=== PATIENT | female | born 1965 | race Caucasian/White ===

== ENCOUNTER 2019-02-20 13:38 | Outpatient (CLI) | payer OTHER ==
--- NOTE | 2019-02-21 22:12 | XRAY Report ---
Reason: JOINT PAIN Procedure Date: 02/20/2019 Accession Number: [id number] / [id number] Procedure: XRN - Hip w/Pelvis 2-3V RT CPT Code: FULL RESULT: EXAM: RIGHT HIP RADIOGRAPHY EXAM DATE: 02/20/2019 02:06 PM. CLINICAL HISTORY: Right hip pain COMPARISON: None. TECHNIQUE: Frontal view of the pelvis and frog-leg lateral view of the right hip (2 images total) FINDINGS: Bones: No acute fracture. No suspicious osseous lesion. Joints: No dislocation. No significant joint space narrowing. Soft Tissues: Unremarkable. IMPRESSION: -- No acute osseous abnormality. -- If pain persists or worsens, a nonemergent outpatient MRI hip may be helpful for further evaluation. RADIA
== END 2019-02-20 13:39 | disposition home or self-care (01) ==
LOC: DI.N 13:38
PROVIDERS: ATTEND Nurse Practitioner Gerontology
DX: M25.551 Pain in right hip (principal)

== ENCOUNTER 2019-06-11 08:54 | Day surgery (SDC) | payer OTHER ==
[2019-06-11] MEDS ORDERED: LACTATED RINGERS 1,000 ML IV ONE (09:00)
[2019-06-11 11:22] VITALS: BP 106/65
== END 2019-06-11 08:55 | disposition home or self-care (01) ==
LOC: SDS 08:54
PROVIDERS: ATTEND Surgery
PROC: 0DJD8ZZ Inspection of Lower Intestinal Tract, Via Natural or Artificial Opening Endoscopic (ICD-10-PCS; principal; 2019-06-11 10:15)
DX: Z12.11 Encounter for screening for malignant neoplasm of colon (principal); Z53.09 Procedure and treatment not carried out because of other contraindication; I10 Essential (primary) hypertension; E11.9 Type 2 diabetes mellitus without complications; Z79.899 Other long term (current) drug therapy; Z79.84 Long term (current) use of oral hypoglycemic drugs
CPT/HCPCS: 45378; J7120

== ENCOUNTER 2020-03-23 08:00 | Outpatient (CLI) | payer OTHER ==
[2020-03-23 12:46] LABS: BASOPHILS # (AUTO) 0.1 10^3/uL (0.0-0.1); BASOPHILS % (AUTO) 0.6 %; EOSINOPHILS # (AUTO) 0.5 10^3/uL (0.0-0.7); EOSINOPHILS % (AUTO) 4.6 %; HGB - HEMOGLOBIN 14.3 g/dL (12.0-16.0); LYMPHOCYTES # (AUTO) 3.4 10^3/uL (1.5-3.5); LYMPHOCYTES % (AUTO) 31.6 %; MEAN CORPUSCULAR HGB CONC 32.1 g/dL (32.0-36.0); MEAN CORPUSCULAR VOLUME 87.3 fL (81.0-99.0); MEAN PLATELET VOLUME 9.5 fL (7.9-10.8); MONOCYTES # (AUTO) 0.7 10^3/uL (0.0-1.0); MONOCYTES % (AUTO) 6.3 %; NEUTROPHILS # (AUTO) 6.1 10^3/uL (1.5-6.6); NEUTROPHILS % (AUTO) 56.3 %; PLT - PLATELET COUNT 240 10^3/uL (130-450); WHITE BLOOD COUNT 10.8 x10^3/uL (4.8-10.8)
[2020-03-23 13:27] LABS: ALBUMIN 3.8 g/dL (3.2-5.5); ALBUMIN/GLOBULIN RATIO 1.2 (1.0-2.2); ALKALINE PHOSPHATASE 92 IU/L (42-121); ALT ALANINE AMINOTRANSFERASE 67 IU/L (10-60); AST ASPARTATE AMINOTRANSFERASE 28 IU/L (10-42); BILIRUBIN,TOTAL 0.8 mg/dL (0.2-1.0); BUN - BLOOD UREA NITROGEN 19 mg/dL (6-20); CALCIUM 9.3 mg/dL (8.5-10.3); CARBON DIOXIDE - CO2 25 mmol/L (21-32); CHLORIDE 102 mmol/L (101-111); CHOLESTEROL 166 mg/dL; CREATININE 0.7 mg/dL (0.4-1.0); GLUCOSE 247 mg/dL (70-100); HDL CHOLESTEROL 56 mg/dL; LDL CHOLESTEROL,CALCULATED 75 mg/dL; LDL/HDL RATIO 1.3 (<4.4); SODIUM 134 mmol/L (135-145); TOTAL PROTEIN 6.9 g/dL (6.7-8.2); VLDL CHOLESTEROL 35 mg/dL
== END 2020-03-23 23:59 | disposition home or self-care (01) ==
LOC: LAB.WCP 08:00
PROVIDERS: ATTEND Nurse Practitioner Family
DX: E78.00 Pure hypercholesterolemia, unspecified (principal); I10 Essential (primary) hypertension; E11.9 Type 2 diabetes mellitus without complications
CPT/HCPCS: 36415; 80053; 80061; 83036; 83721; 84443; 85025

== ENCOUNTER 2021-01-14 15:34 | Outpatient (CLI) | payer OTHER ==
[2021-01-14 15:56] LABS: HGB - HEMOGLOBIN 13.4 g/dL (12.0-16.0); MEAN CORPUSCULAR HEMOGLOBIN 26.8 pg (27.0-31.0); MEAN CORPUSCULAR HGB CONC 32.7 g/dL (32.0-36.0); MEAN PLATELET VOLUME 8.4 fL (7.9-10.8); RED CELL DISTRIBUTION WIDTH 13.1 % (12.0-15.0); WHITE BLOOD COUNT 14.1 x10^3/uL (4.8-10.8)
== END 2021-01-14 15:35 | disposition home or self-care (01) ==
LOC: LAB 15:34
PROVIDERS: ATTEND Surgery
DX: R19.07 Generalized intra-abdominal and pelvic swelling, mass and lump (principal)
CPT/HCPCS: 36415; 82378; 85027; 86304

== ENCOUNTER 2021-09-21 08:00 | Outpatient (CLI) | payer MEDICAID ==
--- NOTE | 2021-09-21 15:18 | CT Report ---
PROCEDURE: CHEST W INDICATIONS: MALIGNANT NEOPLASM OF ENDOMETRIUM CONTRAST: IV CONTRAST: Optiray 320 ml: 100 PO CONTRAST: Optiray 320 ml50 TECHNIQUE: After the administration of intravenous contrast, 1 mm axial images were acquired from the pulmonary apices through the posterior costophrenic angles. Axial 5 mm soft tissue kernel reconstructions were performed as well as 8 mm axial MIP and coronal and sagittal 5 mm reformations. For radiation dose reduction, the following was used: automated exposure control, adjustment of mA and/or kV according to patient size. COMPARISON: July 06, 2021 FINDINGS: CT CHEST: Thyroid: Heterogeneous attenuation. Vasculature: The thoracic aorta and arch vasculature have a normal contrasted appearance and are norm al size and contour. No evidence for dissection. A right gem catheter is seen with tip in SVC. Heart: No cardiomegaly or significant pericardial effusion. Coronary artery calcification. Mediastinum: No pathologic lymph node enlargement by size criteria. Lung/pleura: No pleural effusion, consolidation, or pneumothorax. Tracheobronchial tree: Patent. Bones: No acute abnormality. Redemonstrated sclerotic foci in T6 and T12, unchanged. Chest wall: The chest wall and axilla are within normal limits. IMPRESSION: 1.No significant interval change. Reviewed by: Sathya Pozo MD on 09/21/2021 3:17 PM PST Approved by: Sathya Pozo MD on 09/21/2021 3:17 PM PST Station ID: [id number]
[2021-09-21] MEDS ORDERED: IOVERSOL 320 100 ML VIAL IVP ONE (15:30)
[2021-09-21] MEDS ORDERED: IOVERSOL 320 50 ML VIAL PO ONE (15:30)
--- NOTE | 2021-09-21 15:32 | CT Report ---
PROCEDURE: Abdomen/Pelvis W INDICATIONS: MALIGNANT NEOPLASM OF ENDOMETRIUM CONTRAST: IV CONTRAST: Optiray 320 ml: 100 PO CONTRAST: Optiray 320 ml50 TECHNIQUE: After the administration of oral and intravenous contrast, 5 mm thick sections acquired from the diap hragms to the symphysis. 5 mm thick coronal and sagittal reformats were acquired. For radiation dos e reduction, the following was used: automated exposure control, adjustment of mA and/or kV accordin g to patient size. COMPARISON: July 06, 2021 FINDINGS: Gallbladder: The gallbladder is distended with a smooth thin wall. Biliary tree: No intra-or extrahepatic biliary ductal dilatation. Liver: The liver demonstrates normal enhancement, size, and contour. Spleen: Normal enhancement, size and morphology is seen. Pancreas: No contour deforming mass or inflammatory change. Adrenals: Normal size without masses. Kidneys/ureters: Normal size and morphology. No solid masses or hydronephrosis. 1.2 cm hypoattenuatin g lesion in the left upper pole, most consistent with a cyst. Vasculature: No evidence of aneurysm or other significant vascular pathology. Lymphatic system: Shotty mesentery lymphadenopathy, most prominent in the right lower quadrant. GI/mesentery: No evidence of intestinal obstruction. Sigmoid diverticulosis. Moderate stool burden th roughout the colon. The appendix is not well-visualized. Peritoneum/Retroperitoneum: No free intraperitoneal gas. Moderate ascites. No definitive peritoneal i mplant. Urinary bladder: The urinary bladder is distended with a smooth thin wall. Pelvic organs: Redemonstrated 2 cm soft tissue nodular density in the left adnexa (3-72), unchanged. Bones/soft tissues: No acute abnormality. Redemonstrated sclerotic foci throughout the lumbar spine, less dense/sclerotic compared to the prior study. A 1.2 cm caudal focus in the left iliac bone, most consistent with a bone. IMPRESSION: 1.Moderate volume ascites, grossly unchanged. 2.No definitive peritoneal implant appreciated. 3.Redemonstrated sclerotic foci throughout the spine, which appear less dense/sclerotic compared to t he prior study and may reflect response to therapy. Reviewed by: Sathya Pozo MD on 09/21/2021 3:31 PM PST Approved by: Sathya Pozo MD on 09/21/2021 3:31 PM PST Station ID: [id number]
== END 2021-09-21 23:59 | disposition home or self-care (01) ==
LOC: DI 08:00
PROVIDERS: ATTEND Internal Medicine
DX: C54.1 Malignant neoplasm of endometrium (principal); C78.6 Secondary malignant neoplasm of retroperitoneum and peritoneum; R18.8 Other ascites; R93.7 Abnormal findings on diagnostic imaging of other parts of musculoskeletal system
CPT/HCPCS: 71260; 74177; Q9967

== ENCOUNTER 2021-10-19 12:48 | Outpatient (CLI) | payer MEDICAID ==
--- NOTE | 2021-10-19 16:43 | CONSULTATION NOTE ---
Palliative Care Consultation - Referral Referring Provider: Dr. Indra Guajardo Time of Visit: [id number] Referral setting: [facility] Referral Reason: Peripheral neuropathy/Balance/Endometriod carcinoma of uterus - Information Sources Records reviewed: Previous records reviewed History/Review of Systems obtained from: Patient, Family (sister, Yuliya) Exam limitations: No limitations - History of Present Illness Brief History of Present Illness: This is a amalia 56-year-old female who presents today at [facility] for initial palliative care consultation for symptom management related to peripheral neuropathy that intensified asked to her Taxol treatments, debility, and goals of care with her sister, Yuliya present in the setting of 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 The patient reports that she was noting some nausea and vomiting when she first relocated to [facility] to live by her sister after the of their parents in [place]. She reports that in November 2020 she presented with extreme constipation with a work-up that underlined possible cancer diagnosis. It was initially believed to be GI in origin and she went for a colonoscopy and also had tumor markers performed with demonstration of an elevated CA-125 and therefore, colonoscopy was canceled and she had a consult with gynecology oncology. She lost approximately 60 pounds during this time from her initial diagnosis. She was in seen and evaluated by Dr. Silvia Brown. She subsequently underwent a biopsy that confirmed moderately differentiated carcinoma consistent with gynecologic origin of favoring endometrioid histologic type. She began cycle carboplatinum/Taxol on 04/20/2021 and completed her cycle 08/31/2021. She has been referred back to gynecology oncology for possible evaluation for debulking. Patient and sister have not heard from gynecology oncology office despite referral being placed and will follow-up regarding this. Her most significant burden at this time is related to peripheral neuropathy specifically to her hands and feet. She feels numbness in both her hands and feet. Before chemotherapy she was walking with a cane and therefore with her altered gait due to neuropathy has transition to a Rollator. She will also get shooting pain in her feet at times and she has significant sensitivity to cold. Oncologist has referred to PT/OT at [facility] the patient's request to work with balance and strengthening and fall prevention. Patient has been trialed on gabapentin 900 mg 3 times daily and over a period of several months did not find this beneficial but instead found that she had some mild pruritus related to this to the back of her legs and felt that her sole scraper was worse when handling things. Her neuropathy in sole scraper is worst in her right hand and she is right-hand dominant. She subsequently discontinued the gabapentin approximately 2 weeks ago. Has not noted any change in her symptoms since discontinuation. Sister was also reporting when the patient was up to 900 mg 3 times daily she was having some increased itching and could not seem to get comfortable and settling herself. Medical/Surgical History - Past Medical History Cardiovascular: reports: Hypertension, High cholesterol Respiratory: reports: Asthma, Pneumonia Endocrine/Autoimmune: reports: Type 2 diabetes GI: reports: Other (Stage IVB endometroid carcinoma of the uterus 2020) : reports: None HEENT: reports: Chronic hearing loss (right ear) Psych: reports: Depression MRSA Hx?: No - Past Surgical History General: reports: EGD HEENT: reports: Tonsil/Adenoidectomy - Substance History Use: Uses substance without health or social issues: NONE (HIstory of second hand smoke exposure) Social History - Living Situation Living arrangement: At home Living Situation: With family (sister, Yuliya) Support System: Patient grew up in [place]. She worked 40-hour shifts and then would return home to take care of her aging parents until the passing approximately 5 years ago. She relocated to [facility] January approximately 5 years ago to live with her sister. 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 She has never and has no kids. She has wonderful support from her sister, Yuliya and friends. She has a corgi at home that she has had for approximately 1 year who is very protective and will nip and bite and therefore, they do not have visitors into the home. Family History - Family History Family History: Mother: , Father: , Alzheimer's Disease Medications/Allergies - Medications Home Medications: Ambulatory Orders Medication Instructions Recorded Confirmed Albuterol Sulfate [Proair Hfa] 8.5 gm IH Q4H 09/02/14 04/07/21 Metformin HCl 850 mg PO BID 09/02/14 04/07/21 Multivitamin [Multivitamins] 1 each PO DAILY 09/02/14 04/07/21 Simvastatin 20 mg PO DAILY 09/02/14 04/07/21 Losartan Potassium 100 mg PO DAILY 06/10/19 04/07/21 SITagliptin [Januvia] 100 mg PO DAILY 06/10/19 04/07/21 Lidocaine/Prilocain 2.5% Cream 5 applic TOP UD #1 gm 04/11/21 [Emla 2.5% Cream] OLANZapine [Zyprexa] 5 mg PO UD #12 tablet 04/11/21 Ondansetron Odt [Zofran Odt] 4 mg TL Q6H PRN #30 tab 04/11/21 Prochlorperazine Maleate 10 mg PO Q6HR PRN #30 tab 04/11/21 [Compazine] LORazepam [Ativan] 1 tab PO PRN PRN 04/20/21 04/20/21 Ondansetron Odt [Zofran Odt] 4 mg TL Q6H PRN #90 tablet 04/27/21 Loperamide [Imodium] 2 mg PO 06/01/21 Sertraline [Zoloft] 25 mg PO DAILY 08/31/21 Pregabalin [Lyrica] 25 mg PO QPM 10/21/21 10/21/21 - Allergies Allergies/Adverse Reactions: Allergies Allergy/AdvReac Type Severity Reaction Status Date / Time No Known Drug Allergies Allergy Verified 06/11/19 09:35 Review of Systems - Constitutional Constitutional: reports: Weight loss (Since November 2020, appx 60lb, weighed 210lb before unintentional weight loss). denies: Fever - Eyes Eyes: denies: Corrective lenses - Ears, Nose & Throat Ears, Nose & Throat: reports: Hearing loss (right ear since childhood). denies: Hearing aids, Mouth lesions - Cardiovascular Cardiovascular: denies: Chest pain, Edema - Respiratory Respiratory: reports: Other (History of asthma). denies: Cough - Gastrointestinal Gastrointestinal: reports: Good appetite. denies: Abdominal pain, Constipation, Diarrhea - Genitourinary Genitourinary: denies: Incontinence - Musculoskeletal Musculoskeletal: reports: Muscle weakness, Assistive devices (cane or walker) - Integumentary Integumentary: reports: Dryness - Neurological Neurological: reports: General weakness, Numbness (to b/l hands and b/l feet). denies: Headache - Psychiatric Psychiatric: reports: Depression, Anxiety - Endocrine Endocrine: reports: Diabetes type 2 - Hematologic/Lymphatic Hematologic/Lymph: reports: Anemia (due to chemotherapy) - All Other Systems All Other Systems: reports: Reviewed and negative (sister, Yuliya supplemented ROS) Physical Exam - Vital Signs Temperature: 36.9 C Pulse Rate: 105 O2 Saturation: 99 (on RA) Blood Pressure: 112/71 - Physical Exam General Appearance: positive: No acute distress, Alert, Other (overweight) Eyes Bilateral: positive: Normal inspection ENT: positive: No signs of dehydration Neck: positive: Trachea midline Cardiovascular: positive: Regular rate & rhythm Respiratory: positive: No respiratory distress, Breath sounds nml. negative: Wheezes Abdomen: positive: Non-tender, Soft, Nml bowel sounds, Obese Skin: positive: No symptoms Extremities: positive: No pedal edema Neurologic/Psychiatric: positive: Oriented x3, Mood/affect nml, Other (Sensory ataxic gait with broad base walking with rollator). negative: Sensation nml Palliative Care - POLST Patient has POLST: No Pain: Comment (Pain related to neuropathy to b/l hands and feet rating 2/10) Tiredness/Fatigue: None Drowsiness/Sedation: None Nausea: None Anorexia: None Dyspnea: None Depression: None Anxiety: Mild (1-3) Feelings of wellbeing/Perceived Quality of Life: Good Sleep: Sleeps well Constipation: No Performance Status: Patient is ambulatory with her cane or Rollator. Sister has acquired adaptive utensils to utilize during mealtimes due to neuropathy. No history of frequent falls. Wide based ataxic gait. - Palliative Care Discussion: Patient has completed her chemotherapy and due to cumulative effects has had worsening peripheral neuropathy to her bilateral hands and feet with numbness and cold sensitivity leading to gait impairment and difficulty with fine motor tasks such as writing and holding utensils. She did not find gabapentin up to 900 mg 3 times daily effective. Discussed at length with the patient and sister given her symptom burden is most significant revolving around neuropathy would recommend a trial of pre-Killian starting at a low dose and slowly moving forward based on the patient's response. Lengthy discussion had regarding biobehavioral ability of pre-Killian and some similar structure were related to gabapentin. Patient is agreeable to do a trial of pregabalin 25 mg nightly. Also would benefit from physical therapy outpatient for working on strengthening with balance and mobilization. Followed up with [facility] physical therapy department and referral is in place and plan to contact the patient and sister to schedule on preference days of Tuesdays or Wednesdays. 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 Would benefit from trial of pregabalin 25 mg nightly moving forward and adjust based on the patient's response. Also will benefit from outpatient physical therapy and referral has already been placed and pending scheduling that was confirmed with physical therapy department at [facility]. Palliative care will continue to build rapport, provide care coordination and symptom management and anticipatory guidance. Recommendations/Counseling Done: 1. Peripheral neuropathy, in the setting of underlying diabetes mellitus and likely exacerbated by treatment with Taxol. Did not note improvement with gabapentin. Gabapentin has been discontinued by the patient herself and has not been on for approximately 2 weeks. Discussion had regarding improtance of foot care given neuropathy and underlying diabetes mellitus and to look at feet daily and to never walk barefoot with understanding verbalized. Would benefit from trial of pregabalin 25 mg nightly and adjust this dose moving forward. 2. Ataxic gait due to underlying peripheral neuropathy. Would benefit from PT/OT for balance and strengthening. Pending scheduling with [facility] outpatient physical therapy and was confirmed with department. Fall precautions. Encouraged to utilize her walker with ambulation. 3. Anxiety. Presently overall controlled with utilization of sertraline 25 mg daily and as needed lorazepam. Would consider transitioning to duloxetine if patient does not find pre-Killian effective for her neuropathy symptoms for dual therapy for her neuropathy and underlying anxiety. Continue to monitor. Has a strong support system from her sister. 4. Stage IV endometrial old carcinoma with peritoneal carcinomatosis. Status post carboplatinum/Taxol treatment. Pending referral back to gynecology oncology for possible surgical debulking and notified referral department at [facility] oncology it would be that patient and sister have not heard from water quality specialist o ncologist and to follow-up regarding this referral. Followed by oncology. 5. Advanced care planning. We will continue to follow rapport and tease out goals of care moving forward. Reviewed services related to palliative care. Total time spent 60 minutes with greater than 50% of the spent in counseling and coordination of care with the patient and sister; discussion regarding referrals with referral department at [facility] and physical therapy department; examination of patient; review of symptom management and medication pregabalin with purpose, dose, and side effects; and anticipatory guidance. Disclaimer: The chart note was formulated using voice recognition technology and unfortunately sound alike errors may occur.
== END 2021-10-19 12:49 | disposition home or self-care (01) ==
LOC: PC 12:48
PROVIDERS: ATTEND Nurse Practitioner Family
DX: Z51.5 Encounter for palliative care (principal); E11.42 Type 2 diabetes mellitus with diabetic polyneuropathy; Z79.84 Long term (current) use of oral hypoglycemic drugs; R27.0 Ataxia, unspecified; F41.9 Anxiety disorder, unspecified; C54.1 Malignant neoplasm of endometrium; C78.6 Secondary malignant neoplasm of retroperitoneum and peritoneum
CPT/HCPCS: 99205

== ENCOUNTER 2022-05-19 11:28 | Emergency (ER) | payer MEDICAID ==
[2022-05-19 12:11] LABS: BASOPHILS % (AUTO) 0.3 %; EOSINOPHILS # (AUTO) 0.1 10^3/uL (0.0-0.7); EOSINOPHILS % (AUTO) 0.8 %; HCT - HEMATOCRIT 37.5 % (37.0-47.0); HGB - HEMOGLOBIN 11.6 g/dL (12.0-16.0); LYMPHOCYTES # (AUTO) 1.1 10^3/uL (1.5-3.5); LYMPHOCYTES % (AUTO) 12.3 %; MEAN CORPUSCULAR HGB CONC 30.9 g/dL (32.0-36.0); MEAN CORPUSCULAR VOLUME 87.4 fL (81.0-99.0); MEAN PLATELET VOLUME 8.2 fL (7.9-10.8); MONOCYTES # (AUTO) 0.7 10^3/uL (0.0-1.0); MONOCYTES % (AUTO) 7.9 %; NEUTROPHILS % (AUTO) 78.3 %; PLT - PLATELET COUNT 265 10^3/uL (130-450); RED BLOOD COUNT 4.29 10^6/uL (4.20-5.40); RED CELL DISTRIBUTION WIDTH 16.8 % (12.0-15.0)
[2022-05-19] MEDS ORDERED: LORazepam 1 MG TABLET PO STA (12:23)
[2022-05-19 12:24] LABS: ALBUMIN 3.1 g/dL (3.2-5.5); ALBUMIN/GLOBULIN RATIO 0.9 (1.0-2.2); ALKALINE PHOSPHATASE 82 IU/L (42-121); ALT ALANINE AMINOTRANSFERASE 13 IU/L (10-60); AST ASPARTATE AMINOTRANSFERASE 21 IU/L (10-42); BILIRUBIN,TOTAL 0.6 mg/dL (0.2-1.0); BUN - BLOOD UREA NITROGEN 12 mg/dL (6-20); CALCIUM 9.3 mg/dL (8.5-10.3); CARBON DIOXIDE - CO2 24 mmol/L (21-32); CHLORIDE 102 mmol/L (101-111); CREATININE 0.5 mg/dL (0.4-1.0); GFR - MDRD 127 (>89); GLUCOSE 167 mg/dL (70-100); IONIZED CALCIUM IF INDICATED NO; MAGNESIUM 1.4 mg/dL (1.7-2.8); PHOSPHORUS 3.1 mg/dL (2.5-4.6); POTASSIUM 3.3 mmol/L (3.5-5.0); SODIUM 136 mmol/L (135-145); TOTAL PROTEIN 6.6 g/dL (6.7-8.2)
--- NOTE | 2022-05-19 12:31 | ED Physician Documentation ---
History of Present Illness - Stated complaint Stated Complaint: BODY SHAKING - Chief complaint Chief Complaint: General - History obtained from History obtained from: Patient, Family - History of Present Illness Timing: Today Pain level max: 0 Pain level now: 0 - Additonal information Additional information: Patient is a 57-year-old female brought into the emergency department for increasing anxiety today. She states that she has a history of anxiety She is on anxiety medication but does not know what it is. She does not know any of her medications. Does not have a medication list. She states she has had increased anxiety since being diagnosed with ovarian cancer. She does not talk to her doctor about increasing her anxiety medications. No chest pain. No shortness of breath. She states that she slept poorly last night because of the anxiety. No fevers. No chills. No vomiting. No abdominal pain. Review of Systems Ten Systems: 10 systems reviewed and negative Constitutional: denies: Fever, Chills GI: denies: Vomiting Skin: denies: Rash Musculoskeletal: denies: Neck pain, Back pain Neurologic: denies: Headache PD PAST MEDICAL HISTORY - Past Medical History Cardiovascular: Hypertension, High cholesterol Respiratory: Asthma, Pneumonia Neuro: Peripheral neuropathy Endocrine/Autoimmune: Type 2 diabetes, Other GI: Other APPLIQUER: Other (endometrial ca, ) : None HEENT: Chronic hearing loss (right ear) Psych: Depression Musculoskeletal: Osteoarthritis - Past Surgical History General: EGD HEENT: Tonsil/Adenoidectomy - Present Medications Home Medications: Ambulatory Orders Medication Instructions Recorded Confirmed Albuterol Sulfate [Proair Hfa 1 - 2 puffs IH Q4H PRN 09/02/14 05/19/22 Inhaler] Multivitamin [Multivitamins] 1 each PO DAILY 09/02/14 05/19/22 Simvastatin 20 mg PO QPM 09/02/14 05/19/22 Losartan Potassium 100 mg PO DAILY 06/10/19 05/19/22 Lidocaine/Prilocain 2.5% Cream 5 applic TOP UD #1 gm 04/11/21 05/19/22 [Emla 2.5% Cream] OLANZapine [Zyprexa] 5 mg PO UD #12 tablet 04/11/21 05/19/22 Ondansetron Odt [Zofran Odt] 4 mg TL Q6H PRN #90 tablet 04/27/21 05/19/22 Sertraline [Zoloft] 25 mg PO DAILY 08/31/21 05/19/22 Pregabalin [Lyrica] 25 mg PO QPM 10/21/21 05/19/22 Prochlorperazine [Compazine] 5 - 10 mg PO Q6H PRN 04/28/22 05/19/22 Ibuprofen [Advil] 400 mg PO DAILY PRN 04/29/22 05/19/22 LORazepam [Ativan] 1 mg PO ONCE PRN 04/29/22 05/19/22 SITagliptin [Januvia] 100 mg PO DAILY 04/29/22 05/19/22 - Allergies Allergies/Adverse Reactions: Allergies Allergy/AdvReac Type Severity Reaction Status Date / Time No Known Drug Allergies Allergy Verified 05/19/22 11:39 - Social History Does the pt smoke?: No Smoking Status: Never smoker - POLST Patient has POLST: No POLST Status: Full Code (Sister states that the patient has almost a teenage mentality. We may have to discuss what a full code really means for her to answer this question. We will have to do this tomorrow) PD ED PE NORMAL - Vitals Vital signs reviewed: Yes - General General: Alert and oriented X 3, No acute distress, Well developed/nourished - HEENT HEENT: Moist mucous membranes - Cardiac Cardiac: RRR, No murmur, Strong equal pulses - Respiratory Respiratory: No respiratory distress, Clear bilaterally - Abdomen Abdomen: Soft, Non tender, Non distended - Derm Derm: Warm and dry - Extremities Extremities: No calf tenderness / cord - Neuro Neuro: Alert and oriented X 3 - Psych Psych: Normal mood, Normal affect Results - Vitals Vitals: Vital Signs - 24 hr 05/19/22 05/19/22 11:36 14:00 Temperature 36.7 C Heart Rate 118 H 81 Respiratory 16 16 Rate Blood Pressure 135/85 H 130/75 O2 Saturation 97 97 Oxygen O2 Source Room air - Labs Labs: Laboratory Tests 05/19/22 05/19/22 12:05 12:05 WBC 9.0 RBC 4.29 Hgb 11.6 L Hct 37.5 MCV 87.4 MCH 27.0 MCHC 30.9 L RDW 16.8 H Plt Count 265 MPV 8.2 Neut # (Auto) 7.0 H Lymph # (Auto) 1.1 L [place] # (Auto) 0.7 Eos # (Auto) 0.1 Baso # (Auto) 0.0 Absolute Nucleated RBC 0.00 Nucleated RBC % 0.0 Sodium 136 Potassium 3.3 L Chloride 102 Carbon Dioxide 24 Anion Gap 10.0 BUN 12 Creatinine 0.5 Estimated GFR (MDRD) 127 Glucose 167 H Calcium 9.3 Ionized Calcium NO Phosphorus 3.1 Magnesium 1.4 L Total Bilirubin 0.6 AST 21 ALT 13 Alkaline Phosphatase 82 Total Protein 6.6 L Albumin 3.1 L Globulin 3.5 Albumin/Globulin Ratio 0.9 L PD MEDICAL DECISION MAKING - ED course Complexity details: reviewed results, re-evaluated patient, considered differential, d/w patient, d/w family ED course: Patient feels much better after Ativan. Symptoms resolved. No significant lab abnormalities, mild hypomagnesemia, mild hypokalemia. We will have her follow- up with her doctor for further care. Patient is well-appearing, nontoxic. Afebrile. Patient and family counseled regarding signs and symptoms for which I believe and urgent re-evaluation would be necessary. Patient with good u nderstanding of and agreement to plan and is comfortable going home at this time This document was made in part using voice recognition software. While efforts are made to proofread this document, sound alike and grammatical errors may occur. Departure - Departure Disposition: 01 Home, Self Care Clinical Impression: Anxiety Condition: Good Instructions: ED Stress React Follow-Up: your,doctor on Sunday [Other] Comments: You were given a dose of Ativan today. Please follow-up with your doctor for further care regarding your anxiety. Please return if you worsen. Discharge Date/Time: 05/19/22 14:02
[2022-05-19] MEDS ORDERED: LORazepam 2 MG/ML VIAL IM STA (13:01)
[2022-05-19 14:02] VITALS: BP 130/75
== END 2022-05-19 14:02 | disposition home or self-care (01) ==
LOC: ED 11:28
DX: F41.9 Anxiety disorder, unspecified (principal); C56.9 Malignant neoplasm of unspecified ovary; E87.6 Hypokalemia; E83.42 Hypomagnesemia; I10 Essential (primary) hypertension; E11.42 Type 2 diabetes mellitus with diabetic polyneuropathy; Z79.84 Long term (current) use of oral hypoglycemic drugs
CPT/HCPCS: 36415; 80053; 83735; 84100; 85025; 96372; 96374; 99282; 99283; J2060

== ENCOUNTER 2022-05-21 20:25 | Emergency (ER) | payer MEDICAID ==
[2022-05-21 20:51] VITALS: BP 108/72
== END 2022-05-21 20:51 | disposition left against medical advice (07) ==
LOC: ED 20:25
DX: Z53.21 Procedure and treatment not carried out due to patient leaving prior to being seen by health care provider (principal)

== ENCOUNTER 2022-10-09 14:53 | Observation (INO) | payer MEDICAID ==
--- NOTE | 2022-10-09 17:05 | ED Physician Documentation ---
History of Present Illness - Stated complaint Stated Complaint: FACIAL DROOP - Chief complaint Chief Complaint: Neuro - History obtained from History obtained from: Patient, Family - History of Present Illness Timing: Yesterday Pain level max: 0 Pain level now: 0 - Additonal information Additional information: 57-year-old female brought in by family. 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 Is undergoing chemotherapy with taxol. They noticed slurred speech and facial droop yesterday. Not improved today so brought to the emergency department. No focal neurological deficits. No weakness or numbness. Patient does not have any history of strokes in the past. 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: Other (endometrial ca, ) : None HEENT: Chronic hearing loss (right ear) Psych: Depression Musculoskeletal: Osteoarthritis - Past Surgical History General: EGD HEENT: Tonsil/Adenoidectomy - Present Medications Home Medications: Ambulatory Orders Medication Instructions Recorded Confirmed Albuterol Sulfate [Proair Hfa 1 - 2 puffs IH Q4H PRN 09/02/14 09/27/22 Inhaler] Multivitamin [Multivitamins] 1 each PO DAILY 09/02/14 09/27/22 Simvastatin 20 mg PO QPM 09/02/14 09/27/22 Lidocaine/Prilocain 2.5% Cream 5 applic TOP UD #1 gm 04/11/21 09/27/22 [Emla 2.5% Cream] Ondansetron Odt [Zofran Odt] 4 mg TL Q6H PRN #90 tablet 04/27/21 09/27/22 Sertraline [Zoloft] 75 mg PO DAILY 08/31/21 09/27/22 Pregabalin [Lyrica] 50 mg PO QPM 10/21/21 09/27/22 Prochlorperazine [Compazine] 5 - 10 mg PO Q6H PRN 04/28/22 09/27/22 LORazepam [Ativan] 1 mg PO ONCE PRN 04/29/22 09/27/22 SITagliptin [Januvia] 100 mg PO DAILY 04/29/22 09/27/22 ALPRAZolam [Xanax] 1 tab PO Q4HR PRN MDD 4 tabs 05/24/22 09/27/22 Metoclopramide [Reglan] 1 tab PO TID 05/24/22 09/27/22 oxyCODONE [Roxicodone] 5 mg PO Q4HR PRN 05/24/22 09/27/22 polyethylene glycoL 3350 [Miralax] 17 gm PO DAILY PRN 05/24/22 09/27/22 - Allergies Allergies/Adverse Reactions: Allergies Allergy/AdvReac Type Severity Reaction Status Date / Time No Known Drug Allergies Allergy Verified 10/09/22 14:55 - Social History Does the pt smoke?: No Smoking Status: Never smoker - POLST Patient has POLST: No POLST Status: Full Code (Sister states that the patient has almost a teenage mentality. We may have to discuss what a full code really means for her to answer this question. We will have to do this tomorrow) PD ED PE NORMAL - Vitals Vital signs reviewed: Yes - General General: Alert and oriented X 3, No acute distress - HEENT HEENT: Atraumatic, PERRL, Moist mucous membranes - Neck Neck: Supple, no meningeal sign - Cardiac Cardiac: RRR - Respiratory Respiratory: No respiratory distress, Clear bilaterally - Abdomen Abdomen: Soft, Non tender, Non distended - Back Back: No CVA TTP, No spinal TTP - Derm Derm: Warm and dry, No rash - Extremities Extremities: No edema - Neuro Neuro: Alert and oriented X 3, Other (slurred speech, mild word finding difficulty) Eye Opening: Spontaneous Motor: Obeys Commands Verbal: Oriented GCS Score: 15 Results - Vitals Vitals: Vital Signs - 24 hr 10/09/22 10/09/22 10/09/22 14:56 18:05 19:48 Temperature 36.5 C Heart Rate 100 108 H 102 H Respiratory 16 19 13 Rate Blood Pressure 102/70 92/68 129/82 H O2 Saturation 97 97 98 10/09/22 21:00 Temperature Heart Rate 107 H Respiratory 16 Rate Blood Pressure 113/76 O2 Saturation 100 Oxygen O2 Source Room air - EKG (time done) 1802 EKG releavant findings:: EKG personally interpreted by author of this note. Relevant findings are: Rate: Rate (enter#) (110) Rhythm: Sinus tachycardia [place]cano: Normal Intervals: Normal [place] QRS: Normal Ischemia: Normal ST segments - Labs Labs: Laboratory Tests 10/09/22 10/09/22 10/09/22 17:52 17:52 19:45 WBC 6.9 RBC 3.45 L Hgb 10.3 L Hct 33.1 L MCV 95.9 MCH 29.9 MCHC 31.1 L RDW 14.7 Plt Count 165 MPV 9.9 Neut # (Auto) 4.8 Lymph # (Auto) 1.5 [place] # (Auto) 0.5 Eos # (Auto) 0.1 Baso # (Auto) 0.0 Absolute Nucleated RBC 0.00 Nucleated RBC % 0.0 Sodium 137 Potassium 4.6 Chloride 105 Carbon Dioxide 26 Anion Gap 6.0 BUN 36 H Creatinine 0.6 Estimated GFR (MDRD) 103 Glucose 165 H Calcium 9.0 Total Bilirubin 0.3 AST 13 ALT 18 Alkaline Phosphatase 84 Total Protein 6.4 L Albumin 3.4 Globulin 3.0 Albumin/Globulin Ratio 1.1 Lipase 41 Urine Color YELLOW Urine Clarity CLEAR Urine pH 6.0 Ur Specific [place] 1.020 Urine Protein NEGATIVE Urine Glucose (UA) NEGATIVE Urine Ketones NEGATIVE Urine Occult Blood NEGATIVE Urine Nitrite NEGATIVE Urine Bilirubin NEGATIVE Urine Urobilinogen 0.2 (NORMAL) Ur Leukocyte Esterase NEGATIVE Ur Microscopic Review NOT INDICATED Urine Culture Comments NOT INDICATED - Rads (name of study) CTA head Relevant Findings:: Final report received, See rad report CTA neck Relevant Findings:: Final report received, See rad report Brain MRI Relevant Findings:: Final report received, See rad report PD Medical Decision Making - ED course Complexity details: reviewed results, re-evaluated patient, considered differential, d/w patient, d/w family, d/w consultant nurse ED course: Patient is a 57-year-old female who presents to the emergency department with right-sided facial droop and dysarthria as well as word finding difficulties since yesterday. CBC does not show any significant abnormalities other than a mild anemia. Chemistry does not show any significant abnormalities either other than a elevated BUN at 36. Creatinine is normal. Urinalysis does not show any acute abnormalities. CT angiogram of the neck does not show any significant stenosis or acute abnormalities. CT head does not show any acute abnormalities. MRI shows a small linear acute to subacute infarct within the left heck radiata. Otherwise negative. Aspirin given. Will admit for stroke. Hospitalist consulted Departure - Departure Disposition: 66 [facility] DC/Xfer Clinical Impression: Endometrial cancer, FIGO stage IVB Stroke Qualifiers: CVA mechanism: unspecified Qualified Code(s): I63.9 - Cerebral infarction, unspecified Condition: Stable NIHSS - Time Time: 16:50 - Level of Consciousness Level of consciousness: (0) Alert, Keenly responsive LOC Questions: (0) Answers both Q's correct LOC Commands: (0) Performs both correctly - Gaze Best Gaze: (0) Normal - Visual Visual: (0) No loss - Facial Palsy Facial Palsy: (1) Minor paralysis - Motor Arms (both separate) Motor Arm (right): (0) No drift Motor Arm (left): (0) No drift - Motor Legs (both separate) Motor Leg (right): (0) No drift Motor Leg (left): (0) No drift - Limb Ataxia Limb Ataxia: (0) Absent - Sensory Sensory: (0) Normal - Best Language Best Language: (1) [id number] - Dysarthria Dysarthria: (1) [id number] dysarthria - Extinction and Inattention (formally neg Extinction and inattention: (0) No abnormality - Total Score/Results Total Score/Result: 3
[2022-10-09] MEDS ORDERED: iohexoL-300 100 ML VIAL ONE (17:34)
[2022-10-09 17:57] LABS: BASOPHILS % (AUTO) 0.3 %; EOSINOPHILS # (AUTO) 0.1 10^3/uL (0.0-0.7); EOSINOPHILS % (AUTO) 0.9 %; HCT - HEMATOCRIT 33.1 % (37.0-47.0); HGB - HEMOGLOBIN 10.3 g/dL (12.0-16.0); LYMPHOCYTES # (AUTO) 1.5 10^3/uL (1.5-3.5); LYMPHOCYTES % (AUTO) 21.1 %; MEAN CORPUSCULAR HEMOGLOBIN 29.9 pg (27.0-31.0); MEAN CORPUSCULAR HGB CONC 31.1 g/dL (32.0-36.0); MEAN CORPUSCULAR VOLUME 95.9 fL (81.0-99.0); MEAN PLATELET VOLUME 9.9 fL (7.9-10.8); MONOCYTES # (AUTO) 0.5 10^3/uL (0.0-1.0); MONOCYTES % (AUTO) 6.8 %; NEUTROPHILS # (AUTO) 4.8 10^3/uL (1.5-6.6); NEUTROPHILS % (AUTO) 70.3 %; PLT - PLATELET COUNT 165 10^3/uL (130-450); RED BLOOD COUNT 3.45 10^6/uL (4.20-5.40); RED CELL DISTRIBUTION WIDTH 14.7 % (12.0-15.0); WHITE BLOOD COUNT 6.9 x10^3/uL (4.8-10.8)
[2022-10-09 18:13] LABS: ALBUMIN 3.4 g/dL (3.2-5.5); ALBUMIN/GLOBULIN RATIO 1.1 (1.0-2.2); BILIRUBIN,TOTAL 0.3 mg/dL (0.2-1.0); CREATININE 0.6 mg/dL (0.4-1.0); POTASSIUM 4.6 mmol/L (3.5-5.0); TOTAL PROTEIN 6.4 g/dL (6.7-8.2)
[2022-10-09] MEDS ORDERED: SODIUM CHLORIDE 0.9% 1,000 ML IV STA (18:23)
[2022-10-09] MEDS ORDERED: iohexoL-300 100 ML VIAL IVP ONE (19:14)
--- NOTE | 2022-10-09 19:43 | CT Report ---
PROCEDURE: ANGIO HEAD W/WO INDICATIONS: R facial droop, slurred speech x24 hrs CONTRAST: Omni 300 80ml TECHNIQUE: Precontrast 4.5 mm thick angled axial sections acquired from the foramen magnum to the vertex. Afte r the administration of intravenous contrast, 1 mm thick sections acquired through the [place] of [place] is. Postcontrast 4.5 mm thick sections then re-acquired from the foramen magnum to the vertex. 3-di mensional urtpntg-tupjqenqn-vpbnxeiydq (MIP) and/or volume rendering reformats were acquired of the c entral intracranial vasculature. For radiation dose reduction, the following was used: automated ex posure control, adjustment of mA and/or kV according to patient size. COMPARISON: None FINDINGS: Image quality: Excellent. Anterior circulation: Intracranial internal carotid arteries are normal in size and flow. The flow within the paired anterior cerebral arteries is normal and symmetric. The flow within the middle cer ebral arteries is normal and symmetric. The anterior communicating artery is seen. No aneurysms are seen. Posterior circulation: Visualized portions of the vertebral arteries demonstrate normal caliber, and join to form a normal appearing basilar artery. The right A1 segment is hypoplastic, although there is a prominent posterior indicating arteries supplying the right posterior cerebral artery. Distal fl ow within the posterior cerebral arteries is normal and symmetric. No aneurysms are seen. CSF spaces: Ventricles are normal in size and shape. Basal cisterns are patent. No extra-axial flu id collections. Brain: No midline shift. No intracranial bleeds or masses. Patterson-white matter interface appears int act. No suspicious enhancement. Skull and face: Calvarium and facial bones appear intact, without suspicious lesions. Sinuses: Visualized sinuses and mastoids are clear. IMPRESSION: 1. No CT evidence of acute intracranial process. 2. No evidence of acute intracranial arterial occlusion or aneurysm. Reviewed by: Deana Amaral MD on 10/09/2022 7:41 PM PDT Approved by: Deana Amaral MD on 10/09/2022 7:41 PM PDT Station ID: [id number]
--- NOTE | 2022-10-09 19:48 | CT Report ---
PROCEDURE: ANGIO NECK W INDICATIONS: R facial droop, slurred speech CONTRAST: Omni 300 80ml TECHNIQUE: After the administration of intravenous contrast, 1.5 mm axial sections acquired from the aortic arch to the [place] of [place]. Coronal 3-D maximum intensity projection (MIP) and/or volume rendering ref ormats were then performed. For radiation dose reduction, the following was used: automated exposur e control, adjustment of mA and/or kV according to patient size. COMPARISON: None. FINDINGS: Image quality: Excellent. Carotid system: Normal variant anatomy of the aortic arch with an arch origin of the left vertebral a rtery. The origins of the common carotid arteries appear patent. The common carotid arteries demonst rate normal calibers and courses. The bifurcation on the right demonstrates mild calcification at th e left is patent. The internal carotid arteries demonstrate normal caliber and course. Posterior circulation: The origins of the vertebral arteries appear patent. The right vertebral art saniya is diffusely diminutive from its origin into the foramen magnum. The left vertebral artery origin is widely patent. It extends through the foramen magnum to form the basilar artery. Soft tissues: Visualized neck soft tissues demonstrate no suspicious abnormalities. Multilevel degen erative disc and endplate change in the cervical spine. Heterogeneous thyroid gland with several smal l nodules. Bones: No suspicious bony lesions. Visualized cervical spine appears normally aligned. IMPRESSION: 1. No evidence of hemodynamically significant stenosis in the carotid or vertebral system. 2. No dissection. 3. Congenitally diminutive right vertebral artery. The estimate of stenosis included in the report of the imaging study was calculated using the NASCET method Reviewed by: Deana Amaral MD on 10/09/2022 7:46 PM PDT Approved by: Deana Amaral MD on 10/09/2022 7:46 PM PDT Station ID: [id number]
[2022-10-09 19:55] LABS: BILIRUBIN,URINE NEGATIVE (NEGATIVE); GLUCOSE, URINE (UA) NEGATIVE (NEGATIVE); KETONES,URINE (UA) NEGATIVE (NEGATIVE); LEUKOCYTE ESTERASE, URINE NEGATIVE (NEGATIVE); NITRITE,URINE NEGATIVE (NEGATIVE); OCCULT BLOOD,URINE NEGATIVE (NEGATIVE); PROTEIN,URINE NEGATIVE (NEGATIVE); UROBILINOGEN,URINE 0.2 (NORMAL) E.U./dL (NORMAL)
[2022-10-09 19:56] LABS: CLARITY,URINE CLEAR (CLEAR)
--- NOTE | 2022-10-09 20:18 | MRI Report ---
PROCEDURE: BRAIN WO INDICATIONS: R facial droop, slurred speech TECHNIQUE: Noncontrast axial T1 spin echo, axial T2 fast spin echo, sagittal and axial FLAIR, coronal T2 fast sp in echo, axial gradient echo, axial diffusion and ADC through the brain. COMPARISON: CT angiogram head and neck 10/09/2022. FINDINGS: Image quality: There is motion artifact limiting evaluation. CSF Spaces: Basal cisterns are patent. No extra-axial fluid collections. There is mild cerebral vo lume loss with prominence of the ventricles and sulci. Brain: There is a small linear region of restricted diffusion in the left heck radiata with corres ponding mild T2 hyperintensity consistent with an acute to early subacute infarct. No intracranial he morrhage, mass, or mass effect. There are periventricular and subcortical areas of white matter T2 hy perintensity consistent with moderate chronic small vessel ischemic changes. Brainstem appears normal . Normal intravascular flow voids are present. Skull and face: Calvarium has normal marrow signal. Orbits appear normal. Sinuses: Sinuses and mastoids are clear. IMPRESSION: 1. Small linear acute to early subacute infarct within the left heck radiata. 2. No evidence of intracranial hemorrhage or mass effect. Findings discussed with Dr. Little on 10/09/2022 at 8:15 PM. Reviewed by: Ronak Lin MD on 10/09/2022 8:17 PM PDT Approved by: Ronak Lin MD on 10/09/2022 8:17 PM PDT Station ID: [id number]
[2022-10-09] MEDS ORDERED: ASPIRIN CHEW 81 MG TABLET PO STA (21:51)
--- NOTE | 2022-10-09 22:56 | HISTORY & PHYSICAL EXAMINATION ---
Chief Complaint - Chief Complaint Chief Complaint: facial droop, slurred speech, onset last night History of Present Illness - Admitted From Admitted From:: home - History Obtained From History obtained from: patient Exam Limitations: telemedicine - History of Present Illness HPI Comment/Other: Ms Garza is a 57 yo F with hx DM II, HTN. Presents to ER with c/o right facial droop and slurred speech that was first noticed last night by her sister and roommate >24 hours ago. She came to the ER this evening because it was not improving. Denies headache, dizziness, abd pain, n/v, fevers, chills, cough. Denies numbness or weakness in extremities, other than arthritis in her shoulders. Denies vision changes, has chronic R eye double vision. Denies hearing changes, is deaf in right ear, not new. Pt is currently undergoing weekly chemotherapy for metastatic endometrial cancer, last treatment was last Sunday. History - Past Medical History Cardiovascular: reports: Hypertension, High cholesterol Respiratory: reports: Asthma, Pneumonia Neuro: reports: Peripheral neuropathy Endocrine/Autoimmune: reports: Type 2 diabetes, Other GI: reports: Other MAT TESTER: reports: Other (endometrial ca, ) : reports: None HEENT: reports: Chronic hearing loss (right ear) Psych: reports: Depression Musculoskeletal: reports: Osteoarthritis MRSA Hx?: No Other Past Medical History: endometrial CA - Past Surgical History General: reports: EGD HEENT: reports: Tonsil/Adenoidectomy - Family & Social History Family History Comment/Other: colon ca in mom, Diabetes in mom. She at home with complications of diabetes. Dad also at home with complications of diabetes and dementia. She took care of both her parents. 1 brother and 1 sister. Both have diabetes. Brother has an amputation from a motor vehicle accident. No children Living Situation: With family Social History Notes: Single, no children, never smoked, no alcohol abuse. 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 She moved up from [place] in approximately 2017 to live with her sister. She had been taking care of her parents full-time and now came up to live with her sister. - Substance History Use: Uses substance without health or social issues: NONE - POLST Patient has POLST: No POLST Status: Full Code (Sister states that the patient has almost a teenage mentality. We may have to discuss what a full code really means for her to answer this question. We will have to do this tomorrow) Meds/Allgy - Home Medications Home Medications: Ambulatory Orders Medication Instructions Recorded Confirmed Albuterol Sulfate [Proair Hfa 1 - 2 puffs IH Q4H PRN 09/02/14 09/27/22 Inhaler] Multivitamin [Multivitamins] 1 each PO DAILY 09/02/14 09/27/22 Simvastatin 20 mg PO QPM 09/02/14 09/27/22 Lidocaine/Prilocain 2.5% Cream 5 applic TOP UD #1 gm 04/11/21 09/27/22 [Emla 2.5% Cream] Ondansetron Odt [Zofran Odt] 4 mg TL Q6H PRN #90 tablet 04/27/21 09/27/22 Sertraline [Zoloft] 75 mg PO DAILY 08/31/21 09/27/22 Pregabalin [Lyrica] 50 mg PO QPM 10/21/21 09/27/22 Prochlorperazine [Compazine] 5 - 10 mg PO Q6H PRN 04/28/22 09/27/22 LORazepam [Ativan] 1 mg PO ONCE PRN 04/29/22 09/27/22 SITagliptin [Januvia] 100 mg PO DAILY 04/29/22 09/27/22 ALPRAZolam [Xanax] 1 tab PO Q4HR PRN MDD 4 tabs 05/24/22 09/27/22 Metoclopramide [Reglan] 1 tab PO TID 05/24/22 09/27/22 oxyCODONE [Roxicodone] 5 mg PO Q4HR PRN 05/24/22 09/27/22 polyethylene glycoL 3350 [Miralax] 17 gm PO DAILY PRN 05/24/22 09/27/22 - Allergies Allergies/Adverse Reactions: Allergies Allergy/AdvReac Type Severity Reaction Status Date / Time No Known Drug Allergies Allergy Verified 10/09/22 14:55 Review of Systems - Constitutional Constitutional: denies: Fever, Chills, Malaise - Eyes Eyes: reports: Dipolpia (right eye, chronic) - Ears, Nose & Throat Ears, Nose & Throat: reports: Hearing loss (right ear, chronic) - Cardiovascular Cariovascular: denies: Chest pain, Syncope - Respiratory Respiratory: denies: Cough, Sputum production, SOB at rest - Gastrointestinal Gastrointestinal: denies: Abdominal pain, Diarrhea, Nausea, Vomiting - Genitourinary Genitourinary: denies: Dysuria, Frequency - Musculoskeletal Musculoskeletal: reports: Limited range of motion (arms due to shoulder arth ritis). denies: Muscle pain, Back pain - Integumentary Integumentary: denies: Rash, Pruritis - Neurological Neurological: reports: Slurred speech. denies: Focal weakness, Headache, Numbness, Abnormal gait - Psychiatric Psychiatric: denies: Depression, Anxiety - All Other Systems All Other Systems: reports: Reviewed and negative Prior Level of Functionality: ambulatory Exam - Vital Signs Reviewed Vital Signs: Yes Vital Signs: Vital Signs x48h Temp Pulse Resp BP Pulse Ox 10/09/22 22:09 36.9 C 10/09/22 21:00 107 H 16 113/76 100 10/09/22 19:48 102 H 13 129/82 H 98 10/09/22 18:05 108 H 19 92/68 97 10/09/22 14:56 36.5 C 100 16 102/70 97 - Physical Exam General Appearance: positive: No acute distress, Alert Eyes Bilateral: positive: Normal inspection ENT: positive: ENT inspection nml Neck: positive: Nml inspection Respiratory: positive: No respiratory distress Skin: positive: Color nml, No rash Neurologic/Psychiatric: positive: Oriented x3, Motor nml (while in bed), Facial droop (right), Slurred/abnml speech (mild, speaks in full sentences, comprehensive). 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
[2022-10-09] MEDS ORDERED: SODIUM CHLORIDE FLUSH 0.9% 10 ML SYRINGE IVP PRN (23:15)
[2022-10-09] MEDS ORDERED: ONDANSETRON 4 MG/2 ML VIAL IVP PRN (23:15)
[2022-10-09] MEDS ORDERED: ACETAMINOPHEN 325 MG TABLET PO PRN (23:15)
[2022-10-09] MEDS ORDERED: LABETALOL 20 MG/4 ML SYRINGE IVP PRN (23:21)
[2022-10-10] MEDS: SODIUM CHLORIDE FLUSH 0.9% 10 ML SYRINGE IVP SCH ×2 (00:45→09:26)
[2022-10-10] MEDS ORDERED: ASPIRIN 325 MG TABLET PO SCH (08:00)
[2022-10-10] MEDS ORDERED: ENOXAPARIN 40 MG/0.4 ML SYRINGE SUBQ SCH (09:00)
--- NOTE | 2022-10-10 11:11 | Discharge Plan ---
Discharge Plan Problem Reviewed?: Yes Disposition: Home, Self Care Condition: Stable Prescriptions: Aspirin [Aspirin EC] 81 mg PO DAILY #90 Atorvastatin [Lipitor] 80 mg PO QPM #60 tab Diet: Cardiac Activity Restrictions: Activity as Tolerated Shower Restrictions: No Driving Restrictions: No Health Concerns: You presented as 24 hours of speech impediment, facial droop, and you are currently undergoing chemotherapy for endometrial cancer. You waited a day and you did not get any better and that is what made you come in. The brain MRI do es show you to have a small stroke in the left heck radiata which is an anatomic part of your brain. And then we did an angiogram to see if the arteries in your brain and head were open. All of your arteries are okay. Plan of Treatment: Please see your primary care provider in follow-up. This problem is not handled by your oncologist. You should see Chase Cardozo because she will need to check your blood pressure, and your cholesterol in the next 2 to 3 weeks. The treatment to reduce your risk of having another stroke is to have your blood pressure is controlled as possible, your diabetes is controlled as possible, your cholesterol as low as possible and no smoking. -Right now we have you on a high dose cholesterol pill. You already take it at 20 mg and we are increasing it to 80 mg (atorvastatin). -You need to start taking 81 mg of aspirin a day. - Aim for blood pressure less than 120/70 on a regular basis. -And your A1c to measure your diabetes control needs to be is close to 6% as possible. In the future, you need to know that the faster you get to the emergency room when symptoms start, the better off he will be. If you wait more than 2 or 3 hours, any chance of treating you to reverse the stroke has gone out the window. So I can only stress that if you have symptoms again, get to the emergency room as fast as possible. Do not wait. We think that you would be a candidate for physical therapy and Occupational Therapy. You tell us that your corgi dog would not allow a stranger into the house and it would just get too complicated. So I am ordering you to get outpatient physical and occupational therapy here at the hospital. They are across the [place] from where you get your chemotherapy for your uterine cancer. Care Goals: To reduce your risk of stroke, and to complete your therapy for uterine cancer Assessment: Alert, oriented, states that she understands the care plan and promises to follow through Follow-Up Care: Outpatient Rehab - PT, Outpatient Rehab - OT No Smoking: If you smoke, Please STOP! Call for help. Follow-up with: CHASE CARDOZO, MSN, [employer] SALES CONSULTANT [Primary Care Provider] -
--- NOTE | 2022-10-10 11:23 | DISCHARGE SUMMARY ---
"Discharge Summary Admit Date: 10/09/22 Discharge Date: 10/10/22 Discharging Provider: Jil Almaraz MD Primary Care Provider: PORTIA Verde Code Status: Attempt Resuscitation Condition at Discharge: Stable Discharge Disposition: 01 Home, Self Care - DIAGNOSES Discharge Diagnoses with Status of Each Condition: 1. Stroke, left heck radiata 2. Right facial droop, dysarthria 3. Hyperlipidemia 4. Hypertension 5. Type 2 diabetes mellitus, controlled, without long-term use of insulin, without complications 6. Endometrial cancer - HPI History of Present Illness: Ms Garza is a 57 yo F with hx DM II, HTN. Presents to ER with c/o right facial droop and slurred speech that was first noticed last night by her sister and roommate >24 hours ago. She came to the ER this evening because it was not improving. Denies headache, dizziness, abd pain, n/v, fevers, chills, cough. Denies numbness or weakness in extremities, other than arthritis in her shoulders. Denies vision changes, has chronic R eye double vision. Denies hearing changes, is deaf in right ear, not new. Pt is currently undergoing weekly chemotherapy for metastatic endometrial cancer, last treatment was last Sunday. History - Past Medical History Cardiovascular: reports: Hypertension, High cholesterol Respiratory: reports: Asthma, Pneumonia Neuro: reports: Peripheral neuropathy Endocrine/Autoimmune: reports: Type 2 diabetes, Other GI: reports: Other [employer]: reports: Other (endometrial ca, ) : reports: None HEENT: reports: Chronic hearing loss (right ear) Psych: reports: Depression Musculoskeletal: reports: Osteoarthritis MRSA Hx?: No Other Past Medical History: endometrial CA - Past Surgical History General: reports: EGD HEENT: reports: Tonsil/Adenoidectomy - CONSULTS | PROCEDURES Procedures: Brain MRI is with acute to early subacute infarction within the left heck radiata Neck and head CT angiograms are without any critically narrowed arteries Echocardiogram - HOSPITAL COURSE Hospital Course: Patient was placed in observation status to complete work-up for stroke. She herself feels that most of her symptoms have abated considerably. But on examination, at discharge, she still has a very subtle right facial droop, and I believe slight speech impediment from dysarthria (she does not feel that is a problem). Otherwise strength in upper and lower extremities is normal. 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 She has no ataxia.Able to sit up, stand, and ambulate without assist. Blood pressure is 127/72. Temperature is 36.3. Heart rate 95. 93% on room. Breathing at 19. She is alert, oriented. Clear lungs. Regular rate and rhythm. And abdomen that is soft, nontender, normal bowel sounds. New medications for her will be atorvastatin at 80 mg a day. She was previously on atorvastatin 20. She will also need to be started on 81 mg of aspirin a day. She does not want to do home health PT and OT. She says that her corgi will attack a stranger in the house and she would prefer to go to outpatient PT and OT. She states that she is already traveling to get her chemotherapy at the [facility] [place]. PT and OT are across the hallway from the mat. She needs to see her primary care provider, Madalyn PEARCE, in the next 1 to 2 weeks. - ALLERGIES Allergies/Adverse Reactions: Allergies Allergy/AdvReac Type Severity Reaction Status Date / Time No Known Drug Allergies Allergy Verified 10/09/22 14:55 - MEDICATIONS Home Medications: Ambulatory Orders Medication Instructions Recorded Confirmed Albuterol Sulfate [Proair Hfa 1 - 2 puffs IH Q4H PRN 09/02/14 09/27/22 Inhaler] Multivitamin [Multivitamins] 1 each PO DAILY 09/02/14 09/27/22 Simvastatin 20 mg PO QPM 09/02/14 09/27/22 Lidocaine/Prilocain 2.5% Cream 5 applic TOP UD #1 gm 04/11/21 09/27/22 [Emla 2.5% Cream] Ondansetron Odt [Zofran Odt] 4 mg TL Q6H PRN #90 tablet 04/27/21 09/27/22 Sertraline [Zoloft] 75 mg PO DAILY 08/31/21 09/27/22 Pregabalin [Lyrica] 50 mg PO QPM 10/21/21 09/27/22 Prochlorperazine [Compazine] 5 - 10 mg PO Q6H PRN 04/28/22 09/27/22 LORazepam [Ativan] 1 mg PO ONCE PRN 04/29/22 09/27/22 SITagliptin [Januvia] 100 mg PO DAILY 04/29/22 09/27/22 ALPRAZolam [Xanax] 1 tab PO Q4HR PRN MDD 4 tabs 05/24/22 09/27/22 Metoclopramide [Reglan] 1 tab PO TID 05/24/22 09/27/22 oxyCODONE [Roxicodone] 5 mg PO Q4HR PRN 05/24/22 09/27/22 polyethylene glycoL 3350 [Miralax] 17 gm PO DAILY PRN 05/24/22 09/27/22 Aspirin [Aspirin EC] 81 mg PO DAILY #90 10/10/22 Atorvastatin [Lipitor] 80 mg PO QPM #60 tab 10/10/22 - LABS Result Diagrams: 10/09/22 17:52 10/09/22 17:52"
[2022-10-10 14:10] LABS: ESTIMATED AVERAGE GLUCOSE 120 mg/dL (70-100); HEMOGLOBIN A1c% 5.8 % (4.27-6.07)
[2022-10-10 14:24] VITALS: BP 116/73
[2022-10-10] MEDS ORDERED: ATORVASTATIN 40 MG TABLET PO SCH (21:00)
== END 2022-10-10 15:08 | disposition home or self-care (01) ==
LOC: ED 14:53 → MS3 23:15
PROVIDERS: ADMIT Student in an Organized Health Care Education/Training Program; ATTEND Specialist
DX: I63.9 Cerebral infarction, unspecified (principal); R47.1 Dysarthria and anarthria; R29.810 Facial weakness; I10 Essential (primary) hypertension; R29.703 NIHSS score 3; E11.42 Type 2 diabetes mellitus with diabetic polyneuropathy; Z79.84 Long term (current) use of oral hypoglycemic drugs; E78.5 Hyperlipidemia, unspecified; C54.1 Malignant neoplasm of endometrium
CPT/HCPCS: 36415; 70496; 70498; 70551; 80053; 81003; 83036; 83690; 85025; 92523; 92610; 93005; 93306; 96372; 97162; 97166; 97535; 99284; 99285; A9270; G0378; J1650; Q9967; 81001; 87086

== ENCOUNTER 2023-10-17 08:00 | Outpatient (CLI) | payer MEDICAID | END 2023-10-17 23:59 | disposition home or self-care (01) | LOC: PC 08:00 | PROVIDERS: ATTEND Nurse Practitioner Adult Health | DX: Z51.5 Encounter for palliative care (principal); C54.1 Malignant neoplasm of endometrium; C78.6 Secondary malignant neoplasm of retroperitoneum and peritoneum; G62.0 Drug-induced polyneuropathy; T45.1X5A Adverse effect of antineoplastic and immunosuppressive drugs, initial encounter; E11.65 Type 2 diabetes mellitus with hyperglycemia; Z79.84 Long term (current) use of oral hypoglycemic drugs; Z92.29 Personal history of other drug therapy; F40.231 Fear of injections and transfusions; R62.50 Unspecified lack of expected normal physiological development in childhood; Z79.899 Other long term (current) drug therapy; M62.50 Muscle wasting and atrophy, not elsewhere classified, unspecified site; R26.81 Unsteadiness on feet; Z74.1 Need for assistance with personal care; Z63.79 Other stressful life events affecting family and household; F41.9 Anxiety disorder, unspecified; Z71.89 Other specified counseling | CPT/HCPCS: 99215 ==

== ENCOUNTER 2023-11-28 08:00 | Outpatient (CLI) | payer MEDICAID | END 2023-11-28 23:59 | disposition home or self-care (01) | LOC: PC 08:00 | PROVIDERS: ATTEND Nurse Practitioner Adult Health | DX: Z51.5 Encounter for palliative care (principal); C56.9 Malignant neoplasm of unspecified ovary; C78.6 Secondary malignant neoplasm of retroperitoneum and peritoneum; E11.65 Type 2 diabetes mellitus with hyperglycemia; Z79.85 Long-term (current) use of injectable non-insulin antidiabetic drugs; R62.50 Unspecified lack of expected normal physiological development in childhood; Z79.84 Long term (current) use of oral hypoglycemic drugs; Z79.4 Long term (current) use of insulin; Z79.82 Long term (current) use of aspirin; M62.50 Muscle wasting and atrophy, not elsewhere classified, unspecified site; R26.81 Unsteadiness on feet; G62.9 Polyneuropathy, unspecified; Z02.89 Encounter for other administrative examinations; Z79.899 Other long term (current) drug therapy; G62.0 Drug-induced polyneuropathy; T45.1X5A Adverse effect of antineoplastic and immunosuppressive drugs, initial encounter; F41.9 Anxiety disorder, unspecified | CPT/HCPCS: 99215 ==

== ENCOUNTER 2023-12-12 08:00 | Outpatient (CLI) | payer MEDICARE, MEDICAID | END 2023-12-12 23:59 | disposition home or self-care (01) | LOC: PC 08:00 | PROVIDERS: ATTEND Nurse Practitioner Adult Health | DX: Z51.5 Encounter for palliative care (principal); C54.1 Malignant neoplasm of endometrium; C78.6 Secondary malignant neoplasm of retroperitoneum and peritoneum; E11.65 Type 2 diabetes mellitus with hyperglycemia; T50.905A Adverse effect of unspecified drugs, medicaments and biological substances, initial encounter; G62.0 Drug-induced polyneuropathy; F41.9 Anxiety disorder, unspecified; Z02.89 Encounter for other administrative examinations; Z71.89 Other specified counseling; Z79.4 Long term (current) use of insulin; Z79.82 Long term (current) use of aspirin; Z79.84 Long term (current) use of oral hypoglycemic drugs; Z79.85 Long-term (current) use of injectable non-insulin antidiabetic drugs | CPT/HCPCS: 99215 ==

== ENCOUNTER 2024-02-13 08:00 | Outpatient (CLI) | payer MEDICARE, MEDICAID | END 2024-02-13 23:59 | disposition home or self-care (01) | LOC: PC 08:00 | PROVIDERS: ATTEND Nurse Practitioner Adult Health | DX: Z51.5 Encounter for palliative care (principal); C54.1 Malignant neoplasm of endometrium | CPT/HCPCS: 99426 ==